=== PATIENT | male | born 1965 | race Caucasian/White ===

== ENCOUNTER 2022-09-18 23:02 | Outpatient (REF) | payer MEDICAID, SELFPAY | END 2022-09-18 23:03 | disposition home or self-care (01) | LOC: LBN 23:02 | PROVIDERS: PCP Nurse Practitioner Family; Visit Provider Physician Assistant | DX: M79.671 Pain in right foot (principal); L97.418 Non-pressure chronic ulcer of right heel and midfoot with other specified severity | CPT/HCPCS: 87070; 87205 ==

== ENCOUNTER 2022-09-21 08:39 | Emergency (ER) | payer MEDICAID, SELFPAY ==
[2022-09-21 08:41] VITALS: BP 180/82; PULSE 105; RESP 20; TEMP 37; O2SAT 100
--- NOTE | 2022-09-21 09:15 | W.ED.GENAD ---
Discharge Plan Disposition Patient Disposition: Home Condition: Stable Discharge Details Clinical Impression: Draining postoperative wound, Elevated blood pressure reading Primary Care Provider: Rosy Suazo ED Provider: Cristine Vega Discharge Instructions Instructions: Chronic Wound Care (ED) Additional Instructions: You are doing an excellent job trying to prevent infection. Please continue to keep the area clean, dry and covered. Please continue to monitor for signs of infection including redness, warmth, increased drainage, increased pain, fever/chills. If you develop these or other new/worsening symptoms with a care urgently once again. Otherwise, I have referred you to foot and ankle team at [facility] for continued management of your chronic wound. I have also asked our care management team to help expedite follow-up with primary care as I am concerned that he had elevated blood pressure here today. If you develop chest pain, headache or other new/worsening symptom please seek care urgently once again. Referrals: Rosy Suazo, METEOROLOGICAL OBSERVER [Primary Care Provider] - Discharge Data Discharge Date/Time-TO BE ENTERED AT DEPARTURE: 09/21/22 10:13 Medical Decision Making Patient is a 57-year-old male presenting today with chief complaint of chronic right heel pain. He reports that in 2001 he fell off her horse while at work and suffered a calcaneal fracture which was surgically corrected with 2 screws. Since then, he has had a chronic draining wound on the right heel. States that he chronically has malodorous yellowish discharge for which she always wears Band-Aid. Tries to keep issues loose and prevent them from rubbing. He states that he saw orthopedics remotely and they did discuss bracing which patient declined. He presents today because of frustration around chronic wound, chronic discomfort and chronic drainage. She denies any fevers or chills. No erythema. No increased drainage. Denies any acute change in the area. Patient did have x-ray of the right heel showing no evidence of osteomyelitis, old calcaneal fracture with hardware in place in 2018. On exam, patient appears nontoxic. He has a eraser sized opening the posterior aspect of the calcaneus which does appear quite deep. Not able to visualize bone at this point. However, wound not probed as it does not appear acutely infected. Has minimal discharge on Band-Aid. No surrounding erythema. No pain with palpation over this area. No pain with palpation elsewhere about the calcaneus. There about this feels very dense and scarred. We will touch base with orthopedics. Patient likely needs surgical revision of his well-healed chronic tract. We will see if this should be referred to orthopedics versus podiatry. At this does not appear acutely infected, do not feel that antibiotics are warranted at this time nor do I feel that the patient needs evaluation for acute infection. Consulted with Dr. Cotto. Sent him image with patient permission. He advised that patient will need referral to foot and ankle team at [facility] [place]. He does not feel that this need anything acutely. Is going to need soft tissue work to close the wound, advised he will likely need plastics as well. Discussed recommendations with patient. He has been cleaing the area multiple times a day, soaking, monitoring for infection. Encouraged that he continue with this. Will refer as recommended by Dr. Cotto. All of his questions and concerns were addressed and patient is in agreement with this plan. HPI General Date/Time Provider Initiated Documentation: 09/21/22 08:49. Limitations to Documentation: no limitations. Information obtained by: patient, RN notes reviewed and old records reviewed. History of Present Illness 57 year old M presents to the emergency department with the chief complaint of wound posterior right heel, described as moderate, with intensity rated at 6. Quality is described as aching, and is localized to the right and lower extremity. Patient reports no radiation. Patient started experiencing this year(s) and it has been constant (no acute change). Immobilization improves symptom(s), Movement worsens symptoms (no pain at rest, pain with ambulation) . Patient notes no other symptoms.. Patient did receive the following treatments prior to arrival, none Related Data Allergies Allergy/AdvReac Type Severity Reaction Status Date / Time No Known Drug Allergies Allergy Unverified 09/22/22 13:20 General Stated Complaint: Cellulitis FRANSISCA: 4 Review of Systems Constitutional Constitutional: Reports as per HPI, Denies chills and Denies fever(s) Musculoskeletal Musculoskeletal: Reports as per HPI Integumentary/Breasts Skin/Breast: Reports as per HPI Neurologic Neurologic: Reports as per HPI, Denies sensory deficit and Denies paresthesias PFSH All Active Problems (Updated 09/21/22 @ 09:58 by SARAI Macias) Draining postoperative wound (Acute) Elevated blood pressure reading (Acute) Social History Smoking/Tobacco Use Status: Current every day Tobacco Type: cigarettes Tobacco: How many years used: 10 Smoking risk assessment performed?: Yes Alcohol Intake: never Drug use: Never Substance use type: does not use Do you feel safe at home: Yes Do you feel safe in your relationship?: Yes Exam Const General: cooperative, healthy appearing, comfortable, no acute distress and well developed Nutritional Appearance: average body habitus and well nourished Orientation: alert and awake Resp Effort & Inspection: normal respiratory effort, able to speak in complete sentences and no respiratory distress Cardio Rate: regular rate Rhythm: regular rhythm Skin General skin exam: no erythema Neuro General: patient alert and patient awake Cognition: normal cognition Speech: speech normal Gait: normal gait Sensory Exam: no sensory deficits noted Extrem Ankle/foot/toe images: 1. Eraser sized opening over the calcaneus. Chronic appearing well defined Tylenol. He does have some yellow discharge on the Band-Aid but patient's not having any significant discharge. No surrounding erythema or warmth. No fluctuance. No pain with palpation. No pain with squeezing of the calcaneus. Psych Appearance: grossly normal and well kempt Mental Status: mental status grossly normal Speech and Movement: speech and movement normal Course Vital Signs Vital signs: Vital Signs Temperature 37.0 C 09/21/22 08:41 Pulse 105 H 09/21/22 08:41 Respiratory Rate 20 09/21/22 08:41 Blood Pressure 180/82 H 09/21/22 08:41 Pulse Oximetry 100 09/21/22 08:41 Temperature 37.0 C 09/21/22 08:41 Temperature Source Skin 09/21/22 08:41 Pulse 105 H 09/21/22 08:41 Respiratory Rate 20 09/21/22 08:41 Respiratory Effort Non-Labored 09/21/22 08:46 Blood Pressure 180/82 H 09/21/22 08:41 Blood Pressure Position Sitting 09/21/22 08:41 Pulse Oximetry 100 09/21/22 08:41 Oxygen Delivery Method Room Air 09/21/22 08:41 Oxygen Flow Rate 0 09/21/22 08:41 Pain Level 6 09/21/22 08:41
--- NOTE | 2022-09-21 09:56 | NUR.NOTE ---
Nursing Note: Referral given to Care Management for [facility] Foot & Ankle team and Plastics for chronic draining wound, ABIDA. Referral given to Care Management for needs PCP for hypertension ABIDA.
== END 2022-09-21 10:13 | disposition home or self-care (01) ==
PROVIDERS: Emergency Provider Physician Assistant; PCP Nurse Practitioner Family
DX: R03.0 Elevated blood-pressure reading, without diagnosis of hypertension; S92.001S Unspecified fracture of right calcaneus, sequela; V80.010S Animal-rider injured by fall from or being thrown from horse in noncollision accident, sequela; S91.301A Unspecified open wound, right foot, initial encounter
CPT/HCPCS: 99281; 99283

== ENCOUNTER 2022-09-22 21:08 | Outpatient (REF) | payer MEDICAID, SELFPAY | END 2022-09-22 21:09 | disposition home or self-care (01) | LOC: LBN 21:08 | PROVIDERS: PCP Nurse Practitioner Family; Visit Provider Nurse Practitioner Family | DX: R03.0 Elevated blood-pressure reading, without diagnosis of hypertension (principal) | CPT/HCPCS: 82043; 82570 ==

== ENCOUNTER → 2022-09-24 00:55 | Outpatient (CLI) | payer MEDICAID, SELFPAY ==
--- NOTE | 2022-09-24 07:15 | DI.RAD_ITS ---
Exam(s) XR ANKLE RT COMPLETE EXAM: XR ANKLE RT COMPLETE CLINICAL HISTORY: ? osteomyelitis, post operative draining wound, t81.89xa. TECHNIQUE: 2D digital imaging was performed. Three views. COMPARISON: CR RIGHT FOOT COMPLETE from 03/29/2018 CR LEFT FOOT COMPLETE from 03/29/2018 FINDINGS: BONES: No acute fracture is present. No bony destructive lesion is seen. Two screws are again noted in the posterior calcaneal tuberosity which shows stable contour deformity. JOINTS: The ankle mortise is normally aligned. Ankle joint space is well maintained. SOFT TISSUE: Normal. IMPRESSION: Stable appearance of calcaneal hardware. DATA REPOSITORY: RADIATION DOSE DELIVERED:
--- NOTE | 2022-09-24 07:15 | DI.RAD_ITS ---
Exam(s) XR FOOT RT COMPLETE EXAM: XR FOOT RT COMPLETE CLINICAL HISTORY: draining postoperative wound, t81.89xa,? osteomyelitis. TECHNIQUE: 2D digital imaging was performed. Three views. COMPARISON: CR RIGHT FOOT COMPLETE from 03/29/2018 CR LEFT FOOT COMPLETE from 03/29/2018 FINDINGS: BONES: No acute fracture is present. No bony destructive lesion is seen. Stable appearance of screws in the calcaneal tuberosity. JOINTS: No dislocation present. Minimal degenerative changes 1st MTP j oint. SOFT TISSUE: Normal. IMPRESSION: Stable appearance right foot. DATA REPOSITORY: RADIATION DOSE DELIVERED:
== END ==
PROVIDERS: PCP Nurse Practitioner Family; Visit Provider Nurse Practitioner Family
DX: T81.89XA Other complications of procedures, not elsewhere classified, initial encounter (principal); X58.XXXA Exposure to other specified factors, initial encounter
CPT/HCPCS: 73610; 73630

== ENCOUNTER 2022-09-24 02:23 | Outpatient (CLI) | payer MEDICAID, SELFPAY ==
[2022-09-24 09:08] LABS: Abs Immature Grans 0.14 10^3/uL (0.0-0.06); Absolute Basophil Count 0.14 10^3/uL (0.0-0.2); Absolute Eosinophil Count 0.55 10^3/uL (0.0-0.7); Absolute Lymphocyte Count 3.31 10^3/uL (1.2-3.4); Absolute Neutrophil Count 6.42 10^3/uL (1.2-6.7); Basophils % 1.2; Eosinophils % 4.8; HCT 44.1 % (40.0-50.0); HGB 14.2 g/dL (13.5-17.5); Immature Grans % 1.2; Lymphocytes % 28.9; MCH 29.9 pg (27.0-33.0); MCHC 32.2 % (32.0-36.0); MCV 93 fL (80-95); MPV 9.1 fL (8.0-11.0); Monocytes % 7.9; Platelet Count 495 10^3/uL (130-400); RBC 4.75 10^6/uL (4.36-5.78); RDW 13.2 % (11.8-14.1); RDW-SD 45.3 fL; WBC 11.46 10^3/uL (4.4-10.8)
[2022-09-24 09:09] LABS: Absolute Monocyte Count 0.91 10^3/uL (0.1-0.8)
[2022-09-24 09:31] LABS: ALT 25 U/L (16-63); AST 18 U/L (15-37); Albumin 3.6 g/dL (3.4-5.0); Alkaline Phosphatase 113 U/L (46-116); BUN 9 mg/dL (7-18); Bilirubin, Total 0.3 mg/dL (0.2-1.0); CREATININE 1.2 mg/dL (0.70-1.30); Calcium 9.4 mg/dL (8.5-10.1); Calculated LDL 101 mg/dL (<100); Chloride 101 mmol/L (98-107); Cholesterol 161 mg/dL (<200); Estimated GFR 70.53 (mL/min/1.73m2); Glucose 100 mg/dL (74-106); HDL Cholesterol 45 mg/dL (40-60); Potassium 4.8 mmol/L (3.5-5.1); Sodium 137 mmol/L (136-145); Total Protein 8.4 g/dL (6.4-8.2); Triglyceride 77 mg/dL (<150)
== END 2022-09-24 02:24 | disposition home or self-care (01) ==
LOC: LBO 02:23
PROVIDERS: PCP Nurse Practitioner Family; Visit Provider Nurse Practitioner Family
DX: R03.0 Elevated blood-pressure reading, without diagnosis of hypertension (principal); Z13.220 Encounter for screening for lipoid disorders
CPT/HCPCS: 36415; 80053; 80061; 85025

== ENCOUNTER 2022-12-30 12:52 | Outpatient (REF) | payer MEDICAID, SELFPAY ==
[2022-12-30 13:08] LABS: Abs Immature Grans 0.06 10^3/uL (0.0-0.06); Absolute Eosinophil Count 1.28 10^3/uL (0.0-0.7); Absolute Lymphocyte Count 2.57 10^3/uL (1.2-3.4); Absolute Monocyte Count 0.77 10^3/uL (0.1-0.8); Absolute Neutrophil Count 5.39 10^3/uL (1.2-6.7); Eosinophils % 12.6; HCT 42.7 % (40.0-50.0); HGB 14.1 g/dL (13.5-17.5); Immature Grans % 0.6; Lymphocytes % 25.3; MCH 30.7 pg (27.0-33.0); MCV 93 fL (80-95); MPV 11.9 fL (8.0-11.0); Monocytes % 7.6; Neutrophils % 52.9; Platelet Count 276 10^3/uL (130-400); RBC 4.59 10^6/uL (4.36-5.78); RDW 15.3 % (11.8-14.1); RDW-SD 52.6 fL; WBC 10.17 10^3/uL (4.4-10.8)
[2022-12-30 13:20] LABS: ALT 65 U/L (16-63); AST 40 U/L (15-37); Albumin 3.4 g/dL (3.4-5.0); Alkaline Phosphatase 133 U/L (46-116); Anion Gap 10.9 mmol/L (3-11); BUN 11 mg/dL (7-18); Bilirubin, Total 0.2 mg/dL (0.2-1.0); C-Reactive Protein 0.39 mg/dL (0.0-0.3); CO2 25.1 mmol/L (21.0-32.0); CREATININE 1.1 mg/dL (0.70-1.30); Calcium 9.2 mg/dL (8.5-10.1); Chloride 104 mmol/L (98-107); Glucose 102 mg/dL (74-106); Potassium 4.3 mmol/L (3.5-5.1); Sodium 140 mmol/L (136-145)
== END 2022-12-30 12:53 | disposition home or self-care (01) ==
LOC: LBN 12:52
PROVIDERS: PCP Nurse Practitioner Family; Visit Provider Family Medicine
DX: M86.671 Other chronic osteomyelitis, right ankle and foot (principal)
CPT/HCPCS: 80053; 85025; 86140

== ENCOUNTER 2023-01-06 14:18 | Outpatient (REF) | payer MEDICAID, SELFPAY ==
[2023-01-06 15:05] LABS: ALT 48 U/L (16-63); AST 32 U/L (15-37); Albumin 3.5 g/dL (3.4-5.0); Alkaline Phosphatase 134 U/L (46-116); Anion Gap 9.4 mmol/L (3-11); BUN 10 mg/dL (7-18); Bilirubin, Total 0.2 mg/dL (0.2-1.0); CO2 25.6 mmol/L (21.0-32.0); CREATININE 1.1 mg/dL (0.70-1.30); Calcium 9.4 mg/dL (8.5-10.1); Chloride 104 mmol/L (98-107); Glucose 122 mg/dL (74-106); Potassium 4.4 mmol/L (3.5-5.1); Sodium 139 mmol/L (136-145); Total Protein 7.2 g/dL (6.4-8.2)
[2023-01-06 15:10] LABS: Absolute Basophil Count 0.09 10^3/uL (0.0-0.2); Absolute Eosinophil Count 1.38 10^3/uL (0.0-0.7); Absolute Lymphocyte Count 2.44 10^3/uL (1.2-3.4); Absolute Monocyte Count 0.67 10^3/uL (0.1-0.8); Absolute Neutrophil Count 5.48 10^3/uL (1.2-6.7); Basophils % 0.9; Eosinophils % 13.6; HCT 42.2 % (40.0-50.0); MCH 30.6 pg (27.0-33.0); MCHC 33.2 % (32.0-36.0); MCV 92 fL (80-95); MPV 11.5 fL (8.0-11.0); Monocytes % 6.6; Neutrophils % 53.9; Platelet Count 277 10^3/uL (130-400); RBC 4.58 10^6/uL (4.36-5.78); RDW 15.3 % (11.8-14.1); RDW-SD 51.7 fL; WBC 10.16 10^3/uL (4.4-10.8)
== END 2023-01-06 14:19 | disposition home or self-care (01) ==
LOC: LBN 14:18
PROVIDERS: PCP Nurse Practitioner Family; Visit Provider Family Medicine
DX: M86.671 Other chronic osteomyelitis, right ankle and foot (principal)
CPT/HCPCS: 80053; 85025; 86140

== ENCOUNTER 2023-01-13 16:00 | Outpatient (REF) | payer MEDICAID, SELFPAY ==
[2023-01-13 16:34] LABS: Abs Immature Grans 0.09 10^3/uL (0.0-0.06); Absolute Eosinophil Count 1.34 10^3/uL (0.0-0.7); Absolute Lymphocyte Count 2.81 10^3/uL (1.2-3.4); Absolute Monocyte Count 0.89 10^3/uL (0.1-0.8); Absolute Neutrophil Count 7.62 10^3/uL (1.2-6.7); Basophils % 0.8; Eosinophils % 10.4; HGB 14.2 g/dL (13.5-17.5); Immature Grans % 0.7; Lymphocytes % 21.9; MCH 30.5 pg (27.0-33.0); MCV 92 fL (80-95); MPV 11.4 fL (8.0-11.0); Monocytes % 6.9; Neutrophils % 59.3; Platelet Count 273 10^3/uL (130-400); RBC 4.66 10^6/uL (4.36-5.78); RDW 14.9 % (11.8-14.1); RDW-SD 50.7 fL; WBC 12.85 10^3/uL (4.4-10.8)
[2023-01-13 16:46] LABS: ALT 42 U/L (16-63); AST 26 U/L (15-37); Albumin 3.8 g/dL (3.4-5.0); Alkaline Phosphatase 133 U/L (46-116); Anion Gap 6.5 mmol/L (3-11); BUN 9 mg/dL (7-18); Bilirubin, Total 0.3 mg/dL (0.2-1.0); C-Reactive Protein 0.51 mg/dL (0.0-0.3); CO2 29.5 mmol/L (21.0-32.0); CREATININE 1.2 mg/dL (0.70-1.30); Calcium 9.7 mg/dL (8.5-10.1); Chloride 103 mmol/L (98-107); Estimated GFR 70.53 (mL/min/1.73m2); Glucose 98 mg/dL (74-106); Potassium 4.9 mmol/L (3.5-5.1); Sodium 139 mmol/L (136-145); Total Protein 7.7 g/dL (6.4-8.2)
== END 2023-01-13 16:01 | disposition home or self-care (01) ==
LOC: LBN 16:00
PROVIDERS: PCP Nurse Practitioner Family; Visit Provider Family Medicine
DX: M86.671 Other chronic osteomyelitis, right ankle and foot (principal)
CPT/HCPCS: 80053; 85025; 86140

== ENCOUNTER 2023-01-20 14:58 | Outpatient (REF) | payer MEDICAID, SELFPAY ==
[2023-01-20 16:28] LABS: ALT 43 U/L (16-63); AST 30 U/L (15-37); Alkaline Phosphatase 137 U/L (46-116); Anion Gap 10.7 mmol/L (3-11); BUN 9 mg/dL (7-18); Bilirubin, Total 0.3 mg/dL (0.2-1.0); C-Reactive Protein 0.26 mg/dL (0.0-0.3); CO2 27.3 mmol/L (21.0-32.0); CREATININE 1.1 mg/dL (0.70-1.30); Calcium 9.9 mg/dL (8.5-10.1); Chloride 104 mmol/L (98-107); Glucose 85 mg/dL (74-106); Potassium 4.9 mmol/L (3.5-5.1); Sodium 142 mmol/L (136-145); Total Protein 8.2 g/dL (6.4-8.2)
== END 2023-01-20 14:59 | disposition home or self-care (01) ==
LOC: LBN 14:58
PROVIDERS: PCP Nurse Practitioner Family; Visit Provider Family Medicine
DX: M86.671 Other chronic osteomyelitis, right ankle and foot (principal)
CPT/HCPCS: 80053; 86140

== ENCOUNTER 2024-05-17 03:23 | Outpatient (CLI) | payer MEDICAID, SELFPAY ==
[2024-05-17 12:21] LABS: Abs Immature Grans 0.04 10^3/uL (0.0-0.06); Absolute Basophil Count 0.09 10^3/uL (0.0-0.2); Absolute Eosinophil Count 0.56 10^3/uL (0.0-0.7); Absolute Lymphocyte Count 2.59 10^3/uL (1.2-3.4); Absolute Monocyte Count 0.72 10^3/uL (0.1-0.8); Absolute Neutrophil Count 5.53 10^3/uL (1.2-6.7); Basophils % 0.9 %; Eosinophils % 5.9 %; HCT 45.4 % (40.0-50.0); HGB 15.3 g/dL (13.5-17.5); Immature Grans % 0.4 %; Lymphocytes % 27.2 %; MCH 31.8 pg (27.0-33.0); MCHC 33.7 % (32.0-36.0); MCV 94 fL (80-95); MPV 10.5 fL (8.0-11.0); Monocytes % 7.6 %; Platelet Count 264 10^3/uL (130-400); RBC 4.81 10^6/uL (4.36-5.78); RDW 14.3 % (11.8-14.1); RDW-SD 50.4 fL; WBC 9.53 10^3/uL (4.4-10.8)
[2024-05-17 12:52] LABS: ALT 38 U/L (16-63); AST 29 U/L (15-37); Albumin 3.9 g/dL (3.4-5.0); Alkaline Phosphatase 118 U/L (46-116); Anion Gap 10.7 mmol/L (3-11); BUN 8 mg/dL (7-18); Bilirubin, Total 0.37 mg/dL (0.2-1.0); CO2 24.3 mmol/L (21.0-32.0); CREATININE 1.1 mg/dL (0.70-1.30); Calcium 9.2 mg/dL (8.5-10.1); Calculated LDL 81 mg/dL (<100); Chloride 102 mmol/L (98-107); Cholesterol 141 mg/dL (<200); Estimated GFR 77.33 (mL/min/1.73m2); Glucose 111 mg/dL (74-106); HDL Cholesterol 40 mg/dL (40-60); Potassium 3.9 mmol/L (3.5-5.1); Sodium 137 mmol/L (136-145); Total Protein 7.7 g/dL (6.4-8.2); Triglyceride 102 mg/dL (<150)
[2024-05-18 09:34] LABS: PSA, Screening 2.2 ng/mL (<=3.5)
[2024-05-18 09:39] LABS: HBs Antibody, Quant <3.1 mIU/mL (See Note); Hep B Surface Ab Negative (See Note); Hepatitis B Core Antibody Negative (Negative); Hepatitis B Surface Antigen Negative (Negative)
[2024-05-18 09:48] LABS: HIV-1/2 Ag & Ab Screen Negative (Negative)
[2024-05-18 09:57] LABS: Hepatitis C Ab w Rflx HCV PCR Negative (Negative)
== END 2024-05-17 03:24 | disposition home or self-care (01) ==
LOC: LBO 03:23
PROVIDERS: PCP Nurse Practitioner Family; Referring Provider Nurse Practitioner Family; Visit Provider Nurse Practitioner Family
DX: Z12.5 Encounter for screening for malignant neoplasm of prostate (principal); I73.9 Peripheral vascular disease, unspecified; M86.671 Other chronic osteomyelitis, right ankle and foot; F17.210 Nicotine dependence, cigarettes, uncomplicated; Z11.59 Encounter for screening for other viral diseases; Z11.4 Encounter for screening for human immunodeficiency virus [HIV]
CPT/HCPCS: 36415; 80053; 80061; 84153; 86704; 86706; 86803; 87340; 87389; 85025

== ENCOUNTER 2024-10-28 11:33 | Emergency (ER) | payer MEDICAID, SELFPAY ==
[2024-10-28 11:39] VITALS: BP 159/90; PULSE 98; RESP 16; TEMP 36.5; O2SAT 96
[2024-10-28 11:41] VITALS: PULSE 87; RESP 16; O2SAT 96
--- NOTE | 2024-10-28 11:47 | ED.GENADUL_ITS ---
Discharge Plan Disposition Patient Disposition: Home Condition: Stable Discharge Details Clinical Impression: Otitis externa of left ear Primary Care Provider: Rosy Suazo ED Provider: Tobin Nj Home Meds and New Rx's Prescriptions: New Cortisporin-TC 3.3-3-10-0.5 mg/mL drops,suspension 4 drp otic (ear) TID 7 Days Qty: 10 0RF Continued aspirin 81 mg tablet,delayed release (DR/EC) 81 mg PO DAILY Qty: 90 3RF losartan 50 mg tablet 50 mg PO DAILY Qty: 90 3RF rosuvastatin 10 mg tablet 10 mg PO DAILY Qty: 90 3RF rivaroxaban 2.5 mg tablet 2.5 mg PO BID Qty: 180 3RF Discharge Instructions Additional Instructions: Your ear canal appears inflamed so you are being treated with eardrops If not improving this week follow-up with your primary care provider If you feel more ill, have new symptoms such as high fevers return to the emergency department for reevaluation HPI General Mode of arrival: ambulatory . Date/Time Provider Initiated Documentation: 10/28/24 11:38 . Limitations to Documentation: no limitations . Information obtained by: patient . History of Present Illness 59 year old M presents to the emergency department with the chief complaint of Left ear fullness, described as mild, Quality is described as constant, and is localized to the left. and it has been constant. No relieving factors improve symptom(s), No exacerbating factors reported . Patient notes no other symptoms.. Patient did receive the following treatments prior to arrival, none Related Data Home Medications ?Medication ?Instructions ?Recorded ?Confirmed aspirin 81 mg tablet,delayed 81 mg PO DAILY #90 tabs 11/13/22 05/12/24 release losartan 50 mg tablet 50 mg PO DAILY #90 tabs 01/03/24 05/12/24 rosuvastatin 10 mg tablet 10 mg PO DAILY #90 tabs 01/03/24 05/12/24 rivaroxaban 2.5 mg tablet 2.5 mg PO BID #180 tabs 07/20/24 [id number] 3.3 4 drp otic (ear) TID 7 days #10 mL 10/28/24 mg-3 mg-10 mg-0.5 mg/mL ear drops,susp (Cortisporin-TC) Previous Rx's ?Medication ?Instructions ?Recorded aspirin 81 mg tablet,delayed 81 mg PO DAILY #90 tabs 11/13/22 release losartan 50 mg tablet 50 mg PO DAILY #90 tabs 01/03/24 rosuvastatin 10 mg tablet 10 mg PO DAILY #90 tabs 01/03/24 rivaroxaban 2.5 mg tablet 2.5 mg PO BID #180 tabs 07/20/24 [id number] 3.3 4 drp otic (ear) TID 7 days #10 mL 10/28/24 mg-3 mg-10 mg-0.5 mg/mL ear drops,susp (Cortisporin-TC) Allergies Allergy/AdvReac Type Severity Reaction Status Date / Time No Known Drug Allergies Allergy Unknown Unverified 10/28/24 11:52 General Stated Complaint: EarProblem FRANSISCA: 4 Review of Systems All systems reviewed & are unremarkable except as noted in HPI and below Constitutional Constitutional: Denies chills, Denies fever(s) and Denies weakness ENT Ears, Nose, Mouth, and Throat: Reports other (left ear feels full) Cardiovascular Cardiovascular: Denies chest pain and Denies dyspnea Respiratory Respiratory: Denies cough and Denies dyspnea Gastrointestinal Gastrointestinal: Denies abdominal pain and Denies vomiting Neurologic Neurologic: Denies weakness Exam Const General: no acute distress Orientation: alert [facility] Head: normal to inspection Ears: external ears normal, TM's normal bilaterally and EAC's not normal General nose exam: external nose normal Mouth: moist mucous membranes Eyes General: appearance normal, both eyes and all related structures Neck Neck: normal visual inspection Resp Effort & Inspection: normal respiratory effort and able to speak in complete sentences Cardio Rate: regular rate Skin General skin exam: no rashes or lesions noted Neuro General: patient alert and patient oriented x3 Extrem General: normal to inspection Psych Mental Status: mental status grossly normal Course Vital Signs Vital signs: Vital Signs Temperature 36.5 C 10/28/24 11:39 Pulse 98 H 10/28/24 11:39 Respiratory Rate 16 10/28/24 11:39 Blood Pressure 159/90 H 10/28/24 11:39 Pulse Oximetry 96 10/28/24 11:39 Temperature 36.5 C 10/28/24 11:39 Temperature Source Oral 10/28/24 11:39 Pulse 87 10/28/24 11:41 Respiratory Rate 16 10/28/24 11:41 Blood Pressure 159/90 H 10/28/24 11:39 Blood Pressure Position Sitting 10/28/24 11:39 Pulse Oximetry 96 10/28/24 11:41 Oxygen Delivery Method Room Air 10/28/24 11:41 Oxygen Flow Rate 0 10/28/24 11:39 Pain Level 0 10/28/24 11:41 Medical Decision Making 59-year-old male comes in with 2 to 3 days of feeling like his left ear is full. Denies any fevers and otherwise feels well. His right ear canal has a small amount of wax and a normal-appearing tympanic membrane. The left ear canal has no wax but is swollen and erythematous, the tympanic membrane appears normal. His exam findings are consistent with otitis externa, I will start him on antibiotic drops for this. I advised there is no indication for irrigation at this point. He will follow-up with his PCP if not improving and return precautions given Differential Diagnosis Differential Diagnosis: otitis externa, cerumen Quality:SDOH Health Related Social Needs: No Data to Display PFSH All Active Problems Otitis externa of left ear (Acute) Open wound of right heel (Acute) Chronic osteomyelitis of right foot (Chronic ~2002) Followed by [facility] Severe peripheral arterial disease (Chronic) Essential (primary) hypertension (Chronic) Cigarette smoker (Chronic) Surgical History S/P ORIF (open reduction internal fixation) fracture (~1999) Right calcaneus H/O endarterectomy (11/03/22) Right iliofemoral endarterectomy with bovine patch angioplasty, bilateral common iliac artery and right external iliac artery stenting Status post right foot surgery (10/29/22) Debridement of right calcaneus of necrotic skin, subcutaneous tissue and bone with implantation of antibiotic impregnated beads. Removal of deep hardware right calcaneus Family History Mother , 51 Heart disease Myocardial infarction Father , 35 No problems noted. Son No problems noted. Daughter No problems noted. Paternal Grandfather No problems noted. Paternal Grandmother No problems noted. Maternal Grandfather No problems noted. Maternal Grandmother No problems noted. Social History (Updated 05/17/24 @ 14:02 by Mary Schaefer) Smoking/Tobacco Use Status: Current-Occasional Tobacco Type: cigarettes Tobacco: How many years used: 6 Quit status: not considering quitting Second Hand Exposure: Yes Smoking risk assessment performed?: Yes Alcohol Intake: former Year quit: 1985 Drug use: Socially Substance use type: does not use and marijuana Adopted: No Caregiver/Support person: No Household members: friend(s) Housing: house Communication Needs: None Education Level: high school Do you need help understanding health information?: Rarely current occupation: Disabled Pets and animals: No Sexually active: Yes Do you think of yourself as: straight/heterosexual Current gender identity: male What is your relationship status?: never How often do you talk on the phone with friends or family?: decline to answer How often do you get together with friends or relatives?: twice per week How often do you attend yarsanism or scientology services?: decline to answer Do you belong to any clubs or organized social groups?: no Panel score (0-1 are the most socially isolated patients): 0 What type of physical activity do you participate in: walking Duration: 15-30 minutes/day Frequency: 3-4 times per week Susannah/Amish: Non yarsanism Special susannah needs: No Seatbelt use: sometimes Helmet use: Yes Helmet use: always Drive intox or ride w/intox transporter driver: No Firearms in home: No Do you feel safe at home: Yes Do you feel safe in your relationship?: Yes Victim of physical abuse: No Victim of emotional abuse: No Victim of sexual abuse: No Would you like helpful sources: No
== END 2024-10-28 11:53 | disposition home or self-care (01) ==
PROVIDERS: Emergency Provider Emergency Medicine; PCP Nurse Practitioner Family
DX: H60.92 Unspecified otitis externa, left ear (principal); I10 Essential (primary) hypertension
CPT/HCPCS: 99283